=== PATIENT | female | born 1945 | race Caucasian/White ===

== ENCOUNTER 2024-11-18 13:46 | Inpatient (IN) | payer OTHER, SELFPAY ==
[2024-11-17 17:55] VITALS: BP 153/72
--- NOTE | 2024-11-17 18:02 | ED.GENMED ---
History of Present Illness
<Haven Collier PA-C - Last Filed: 11/17/24 22:20>
General
Chief Complaint: Fall
Source: patient
Exam Limitations: none
Time Seen by Provider: 11/17/24 17:59
Nursing documentation reviewed up to this point in time: agreed with
History of Present Illness
History of Present Illness:
79-year-old female with past medical history of dementia, hypertension, hyperlipidemia comes to the emergency department today via EMS for left shoulder pain left arm pain following a fall. Patient reports that she was walking at [employer] when
she tripped over the carpet and fell onto her left side. She is unsure if she hit her head but does note a mild left-sided headache. She was unable to get up on her own after the incident and EMS was called. She denies any hip pain, chest wall
pain, shortness of breath. She denies any abdominal pain. She has not take any antiplatelet or anticoagulant agents. She denies any neck pain. She she denies any syncope with a fall or any dizziness preceding it.
Review of Systems
<Haven Collier PA-C - Last Filed: 11/17/24 22:20>
Review of Systems
All Other Systems: ROS reviewed and negative except as documented in HPI and ROS
Phy Exam
<Haven Collier PA-C - Last Filed: 11/17/24 22:20>
Physical Exam
Physical Exam:
General: Patient is well appearing and in no acute distress; non-toxic
Skin: Warm and dry, no rashes or lesions
Head: Normocephalic, atraumatic, mild tenderness to palpation to left frontal scalp with no palpable hematoma
Eyes: Sclera non-icteric. EOMs intact. PERRLA.
Cardiac: Regular rate and rhythm, no murmurs, no tenderness to palpation of the external chest wall
Peripheral Vascular: No lower extremity swelling or edema
Pulm: Normal respiratory effort
Abdomen: No abdominal tenderness
Musculoskeletal: Significant swelling noted to left upper arm, no obvious bony deformity, significant tenderness to left upper arm with palpation. Patient unable to range left arm due to significant pain.
Neuro: CN II-XII intact, no focal neurologic deficits.
Psychiatric: Appropriate mood and affect.
Course
<Haven Collier PA-C - Last Filed: 11/17/24 22:20>
Orders/Labs/Results
Orders:
Orders
11/17/24 18:04
CMP [Comprehensive Metabolic Panel] Urgent
Complete Blood Count/With Diff Urgent
11/17/24 18:10
CT Head W/o Iv Contrast Urgent
Comment:
Reason For Exam: left sided headache following fall
Morphine Sulfate 2 mg IV NOW STA
CR Humerus - Left Min 2 Views* Urgent
Comment:
Reason For Exam: left shoulder pain left arm pain
CR Shoulder - Left Min 2 View* Urgent
Comment:
Reason For Exam: left shoulder pain left arm pain
11/17/24 18:13
CT Cervical Spine W/o Iv Contr Urgent
Comment:
Reason For Exam: neck pain following fall
11/17/24 20:35
Acetaminophen [Tylenol] 1,000 mg PO NOW STA
Morphine Sulfate 4 mg IV NOW STA
11/17/24 21:27
Admit/Transfer Patient As Directed
Co-Sign Provider:
Level of Care: Observation services
Assign to:: Medical/Surgical
Physician / Group: hospitalist
Diagnosis: left humerus fracture
Reason for Hospitalization: ambulatory dysfunction
11/17/24 21:28
PRN Pain Medication Management As Directed
May give lesser potent ordered pain med per pt: Yes
preference::
Protocol:: Medication orders for pain may be administered in a
manner that supports deferring to patient preference
when the pt is:
- Requesting an ordered lesser potent pain medication.
Least to most potent pain medications are defined
as: acetaminophen < NSAID < tramadol < opioids
(morphine, oxycodone, hydromorphone).
- Requesting a lesser dose of the same medication IF
ORDERED.
- Requesting a less intrusive route of administration
if both routes are prescribed by the provider (PO <
IV).
11/17/24 21:30
Code Status As Directed
Resuscitation Status: Full Code
11/17/24 22:00
Flush (0.9% Sodium Chloride) [Flush (Nss)] See Dose Instructions IV PER PROTOCOL
Abnormal Lab Results
11/17/24
18:04
RBC 3.89 L 10^6/uL
(4.20-5.40)
Hgb 11.5 L g/dL
(12.0-16.0)
Hct 34.1 L %
(37.0-47.0)
RDW 15.1 H %
(11.5-14.5)
Absolute Monos (auto) 0.7 H 10^3/uL
(0.1-0.6)
Lymphocytes % 18.1 L %
(20.5-51.1)
BUN 18 H mg/dl
(7-17)
Glucose 105 H mg/dl
(70-99)
11/17/24 18:04
11/17/24 18:04
Vital Signs
Initial and Last Documented VS:
Initial Vital Signs
Temp Pulse Resp BP Pulse Ox
97.9 F 78 16 153/72 96
11/17/24 17:55 11/17/24 17:55 11/17/24 17:55 11/17/24 17:55 11/17/24 17:55
Last Documented Vital Signs
Temp Pulse Resp BP Pulse Ox
97.9 F 83 17 114/64 98
11/17/24 17:55 11/17/24 21:30 11/17/24 18:15 11/17/24 21:00 11/17/24 21:30
<Cherie Bonner MD - Last Filed: 11/17/24 19:25>
Orders/Labs/Results
Orders:
Orders
11/17/24 18:04
CMP [Comprehensive Metabolic Panel] Urgent
Complete Blood Count/With Diff Urgent
11/17/24 18:10
CT Head W/o Iv Contrast Urgent
Comment:
Reason For Exam: left sided headache following fall
Morphine Sulfate 2 mg IV NOW STA
CR Humerus - Left Min 2 Views* Urgent
Comment:
Reason For Exam: left shoulder pain left arm pain
CR Shoulder - Left Min 2 View* Urgent
Comment:
Reason For Exam: left shoulder pain left arm pain
11/17/24 18:13
CT Cervical Spine W/o Iv Contr Urgent
Comment:
Reason For Exam: neck pain following fall
11/17/24 20:35
Acetaminophen [Tylenol] 1,000 mg PO NOW STA
Morphine Sulfate 4 mg IV NOW STA
11/17/24 21:27
Admit/Transfer Patient As Directed
Co-Sign Provider:
Level of Care: Observation services
Assign to:: Medical/Surgical
Physician / Group: hospitalist
Diagnosis: left humerus fracture
Reason for Hospitalization: ambulatory dysfunction
11/17/24 21:28
PRN Pain Medication Management As Directed
May give lesser potent ordered pain med per pt: Yes
preference::
Protocol:: Medication orders for pain may be administered in a
manner that supports deferring to patient preference
when the pt is:
- Requesting an ordered lesser potent pain medication.
Least to most potent pain medications are defined
as: acetaminophen < NSAID < tramadol < opioids
(morphine, oxycodone, hydromorphone).
- Requesting a lesser dose of the same medication IF
ORDERED.
- Requesting a less intrusive route of administration
if both routes are prescribed by the provider (PO <
IV).
11/17/24 21:30
Code Status As Directed
Resuscitation Status: Full Code
11/17/24 22:00
Flush (0.9% Sodium Chloride) [Flush (Nss)] See Dose Instructions IV PER PROTOCOL
Abnormal Lab Results
11/17/24
18:04
RBC 3.89 L 10^6/uL
(4.20-5.40)
Hgb 11.5 L g/dL
(12.0-16.0)
Hct 34.1 L %
(37.0-47.0)
RDW 15.1 H %
(11.5-14.5)
Absolute Monos (auto) 0.7 H 10^3/uL
(0.1-0.6)
Lymphocytes % 18.1 L %
(20.5-51.1)
BUN 18 H mg/dl
(7-17)
Glucose 105 H mg/dl
(70-99)
11/17/24 18:04
11/17/24 18:04
Vital Signs
Initial and Last Documented VS:
Initial Vital Signs
Temp Pulse Resp BP Pulse Ox
97.9 F 78 16 153/72 96
11/17/24 17:55 11/17/24 17:55 11/17/24 17:55 11/17/24 17:55 11/17/24 17:55
Last Documented Vital Signs
Temp Pulse Resp BP Pulse Ox
97.9 F 83 17 114/64 98
11/17/24 17:55 11/17/24 21:30 11/17/24 18:15 11/17/24 21:00 11/17/24 21:30
<Haven Collier PA-C - Last Filed: 11/17/24 22:20>
MDM/Problems Addressed
Differential Diagnosis Includes:
see below
MDM/Problems Addressed:
NUMBER AND COMPLEXITY OF PROBLEMS ADDRESSED AT THE ENCOUNTER
� Chronic conditions affecting care: Dementia, GERD, anxiety, depression, vertigo
� Acute Exacerbation and/or Progression of Chronic Illness:
� Differential Diagnosis includes: Humeral fracture, clavicular fracture, musculoskeletal sprain/strain, subdural hematoma, epidural hematoma, continue
AMOUNT AND/OR COMPLEXITY OF DATA TO BE REVIEWED AND ANALYZED
� I performed an independent evaluation of and my interpretation is:
CT: No acute intracranial
X-rays: Displaced humerus fracture noted
Laboratory Studies: unremarkable
Other:
� Review of other/old records: No previous ER physician documentation to review
� Clinical information was obtained by an independent historian: Spoke to daughter on phone who helped provide history regarding patient's functional status
� Prescriptions/Medications Considered but not given: none
� Further testing considered but not performed: none
RISK OF COMPLICATIONS AND/OR MORBIDITY OR MORTALITY OF PATIENT MANAGEMENT
� Social determinants of health affecting care: none
� Discussion with other providers: ER attending, Dr. Meyer
� Escalation of care including admission/observation vs risk of discharge considered:
79-year-old female past medical history dementia presents emergency department from [facility] for left upper extremity pain following a trip and fall. She is found to have a displaced humerus fracture. She was treated with
multiple rounds of pain medication. On exam, she has significant swelling surrounding the left upper arm however her sensation is intact and she has good distal pulses. Per orthopedic Recommendations, she was placed in a coadaptation splint.
Patient does use a walker to ambulate 06/06, considering patient lives alone will be unable to ambulate at this time, will admit for further pain control and potential surgical repair. I did update patient's daughter. Patient referred for admission.
<Haven Collier PA-C - Last Filed: 11/17/24 22:20>
*Critical Care Note
Total Time (30-74mins, 75-104mins- exclusive of procedures): Not Applicable
ED Attending Note
<TAQUERIA Corona-Terri - Last Filed: 11/17/24 22:20>
-
Portions of this chart may have been created with voice recognition software.� Occasional wrong word or��sound alike� substitutions may have occurred due to the inherent limitations of voice recognition software.
<Cherie Bonner MD - Last Filed: 11/17/24 19:25>
ED Attending Note
Patient seen and examined by attending physician: Yes
I performed the substantive portion of visit, reviewed & personally made and approve the management plan that is documented in note by myself or SHELLEY.: Yes
ED Attending Note:
Patient appears well nontoxic. She is fully conversational and awake. She denies any severe headache, nausea and vomiting. She has no C-spine tenderness. Patient has strong pulses and good movement of her left hand. We will likely splint her in
a posterior long splint and speak to orthopedics for follow-up.
Discharge Plan
Departure
Patient Disposition: Admit
Date of Disposition: 11/17/24
Time of Disposition: 21:03
Admit to: Med/Surg
Presentation/result/management discussed w/ accepting MD/DO: Hospitalist
Condition: Fair
Discharge Problem:
Displaced fracture of shaft of humerus, Ambulatory dysfunction
Interventions
Interventions:
*Risk Screen - Suicide Last Done: 11/17/24 18:15
*General Assessment Last Done: 11/17/24 18:15
*Neglect/Abuse Screening Last Done: 11/17/24 18:15
*ED COVID-19 Vaccine History Last Done: 11/17/24 18:15
ED-Musculoskeletal Assessment Last Done: 11/17/24 18:22
ED- Neurological Assessment Last Done: 11/17/24 18:22
ED-Skin Assessment Last Done: 11/17/24 18:22
[2024-11-17 18:08] VITALS: BMI 33.7
[2024-11-17 18:11] LABS: % Basophils 0.4 % (0-2); % Eosinophils 0.7 % (0-6); % Immature Granulocytes 0.2 % (0-0.5); % Lymphocytes 18.1 % (20.5-51.1); % Monocytes 8.3 % (1.7-9.3); % Neutrophils 72.3 % (42.2-75.2); Absolute Eosinophils 0.1 10^3/uL (0-0.7); Absolute Lymphocytes 1.5 10^3/uL (1.2-3.4); Absolute Monocytes 0.7 10^3/uL (0.1-0.6); Absolute Neutrophils 5.8 10^3/uL (1.4-6.5); Hematocrit 34.1 % (37.0-47.0); Hemoglobin 11.5 g/dL (12.0-16.0); Mean Corp Hgb Conc. 33.7 g/dL (33.0-37.0); Mean Corpuscular Hgb 29.6 pg (27.0-31.0); Mean Corpuscular Volume 87.7 fL (81.0-99.0); Mean Platelet Volume 9.2 fL (7.4-10.4); Nucleated Red Blood Cells % 0 %; Platelet Count 184 10^3/uL (130-400); Red Blood Cell Count 3.89 10^6/uL (4.20-5.40); Red Cell Dist. Width 15.1 % (11.5-14.5); White Blood Cell Count 8.1 10^3/uL (4.8-10.8)
[2024-11-17] MEDS: MORPHINE SULFATE 2 MG IV (18:19)
[2024-11-17 18:26] LABS: ALT (SGPT) 15 U/L (0-35); AST (SGOT) 22 U/L (14-36); Alkaline Phosphatase 110 U/L (38-126); Blood Urea Nitrogen 18 mg/dl (7-17); Calcium 9.2 mg/dl (8.4-10.2); Carbon Dioxide 30 mmol/L (22-30); Chloride 101 mmol/L (98-107); Estimated Creatinine Clearance 76 ml/min; Glucose 105 mg/dl (70-99); Potassium 3.5 mmol/L (3.5-5.1); Sodium 137 mmol/L (135-145); Total Bilirubin 0.5 mg/dl (0.2-1.3); Total Protein 6.7 g/dl (6.3-8.2); eGFR > 60.00
[2024-11-17 19:15] VITALS: BP 142/76
[2024-11-17 20:00] VITALS: BP 111/85
[2024-11-17] MEDS: TYLENOL 1000 MG PO (20:57)
[2024-11-17 21:00] VITALS: BP 114/64
--- NOTE | 2024-11-17 21:17 | HPS.HSE ---
Family Physician
-
Family Physician: Gaurav Bryant
Chief Complaint
-
Left-sided shoulder fracture status post fall
History of Present Illness
This is a 79-year-old with a complex past medical history including hypertension, hyperlipidemia, asthma, obesity, ambulatory dysfunction and mild dementia who presents to the emergency department following a mechanical fall at her assisted living
facility.
Patient presents from [facility] following the fall. She recalls tripping on a rug and falling. She denies any loss of consciousness. She did not hit her head. She denies having any prodromal symptoms prior to the fall. He appears to be
slowly mechanical fall. Patient had not had a fall in 6 months. She was helped up but was complaining of severe pain and was brought to the emergency department for evaluation.
In the emergency department, found to have an acute displaced fracture of the left humeral diaphysis. Ortho consulted in the ED and recommended placement of a coaptation splint which was placed. Patient already ambulates with a walker and
unfortunately cannot be discharged safely to home.
Vital signs in the ED showed a blood pressure of 4 110/85 with a pulse of 91. She is satting 99% on room air. She was afebrile. CBC was unremarkable. Likewise chemistries BUN/creatinine were also stable.
The imaging on shoulder x-ray shows acute displaced fracture of the left mid humeral diaphysis. CT of the head was unremarkable. CT of the C-spine shows chronic degenerative changes with moderate to severe foraminal narrowing against the 422 C7.
She has no significant canal stenosis. Her x-ray shows no acute trauma.
Medical History
Past Medical History
Past Medical History: Reports Asthma, Dementia (Mild), GERD, HTN and Hypercholesterolemia
Past Surgical History: Reports Bowel Resection (Hemicolectomy), (X 2) and Orthopedic (Cervical spine fusion, lumbar spine fusion, bilateral total hip arthroplasty,)
Social History
Tobacco: Non-smoker
Alcohol: Occasional
Drug: None
Personal:
Living: Assisted Living
Employment: Retired
Family History
Family History: Not pertinent
Allergies / Home Medications
Allergies reflects when Allergies were last updated in [facility].
Home Medications with original date entered in [facility]
Allergy/Medication List:
Allergies
Allergy/AdvReac Type Severity Reaction Status Date / Time
bupropion [From Wellbutrin] Allergy vomting, Verified 11/17/24 17:52
dizziness
donepezil [From Aricept] Allergy Nausea Verified 11/17/24 17:52
oxycodone [From Percocet] Allergy dizziness Verified 11/17/24 17:52
propoxyphene Allergy dizziness Verified 11/17/24 17:52
[From Darvocet-N]
Home Medications
acetaminophen 500 mg tablet 1,000 mg PO BID 11/17/24
atorvastatin 20 mg tablet 20 mg PO DAILY 11/17/24
bisacodyl 5 mg tablet (Woman's Laxative (bisacodyl)) 5 mg PO DAILY 11/17/24
gabapentin 600 mg tablet 600 mg PO DAILY 11/17/24
gabapentin 800 mg tablet 800 mg PO HS 11/17/24
lamotrigine 25 mg tablet 50 mg PO HS 11/17/24
lisinopril 2.5 mg tablet 2.5 mg PO DAILY 11/17/24
memantine 10 mg tablet 10 mg PO BID 11/17/24
montelukast 10 mg tablet 10 mg PO DAILY 11/17/24
nortriptyline 10 mg capsule 20 mg PO HS 11/17/24
omeprazole 20 mg capsule,delayed release 20 mg PO DAILY 11/17/24
therapeutic multivitamin 1 tab PO DAILY 11/17/24
tramadol 50 mg tablet 100 mg PO BID 11/17/24
venlafaxine 75 mg capsule,extended release 24 hr 225 mg PO DAILY 11/17/24
Review of Systems
-
History Source: Patient
Constitutional: Reports No Symptoms
EENT: Reports No Symptoms
Respiratory: Reports No Symptoms
Cardiac: Reports No Symptoms
Abdomen/GI: Reports No Symptoms
: Reports No Symptoms
Musculoskeletal: Reports Joint Pain
Skin: Reports No Symptoms
Neurological: Reports No Symptoms
Endocrine: Reports No Symptoms
Hematologic/Lymphatic: Reports No Symptoms
Psych: Reports No Symptoms
Physical Exam
Vital Signs
Vital Signs
Temp Pulse Resp BP Pulse Ox
97.9 F 91 17 111/85 99
11/17/24 17:55 11/17/24 20:15 11/17/24 18:15 11/17/24 20:00 11/17/24 20:00
Physical Exam
General: Pain
HEENT: NormoCephalic, Anicteric, Moist mucous membranes and Atraumatic
Respiratory: Clear
Cardiac: S1/S2 and Regular Rhythm
Breast: Deferred by me
GI: Soft, Non Tender, Non Distended and Normal Bowel Sounds
Rectal: Deferred by Provider
Genito-urinary: Deferred by me
Musculoskeletal: No Clubbing, No Cyanosis, No Edema and Other (Left upper extremity free in a splint. Pulses intact.)
Skin: Warm
Neuro: AO x 3 and Nonfocal/grossly intact
Psych: Calm
Laboratory Results
-
11/17/24 18:04
11/17/24 18:04
Laboratory Results
Total Bilirubin 0.5 mg/dl (0.2-1.3) 11/17/24 18:04
AST 22 U/L (14-36) 11/17/24 18:04
ALT 15 U/L (0-35) 11/17/24 18:04
Alkaline Phosphatase 110 U/L (38-126) 11/17/24 18:04
Data Reviewed
-
Diagnostic Radiology: Report Reviewed by me
CT Scan: Report Reviewed by me
Lab Data: Labs Reviewed by me
Old Records: Reviewed
Impression/Plan
-
IMPRESSION:
79-year-old female has ambulatory dysfunction and ambulates with a walker and lives at assisted living at [facility] presents to the emergency department following a mechanical fall and suffered an acute displaced fracture of the left mid humeral
diaphysis. She has been placed in a splint as recommended by orthopedics. However she is still in pain and has significant worsening of ambulatory capacity. No other traumatic or medical findings in this acute visit.
PLAN:
1. Fracture
- admit to med/surg
- pain control w/ tylenol, gabapentin and low dose opioids prn
- continue coaptation splint per ortho
- PT/OT
- Case management
2. HTN -Stable
- continue lisinopirl 2.5
3. Asthma - Mild intermittent, no current exacerbation
- prn nebs
- continue montelukast
4. Dementia - Mild. Patient a&o x 3 here and appropriate
- continue memantine
- continue venlafaxine
DVT PPx - lovenox sq
Code status - full code
[2024-11-17 22:00] VITALS: BP 128/66
[2024-11-17] MEDS: MORPHINE SULFATE 4 MG IV (22:14)
[2024-11-17 23:22] VITALS: BP 103/63
[2024-11-18] VITALS (8 sets, daily range): BP systolic 91–113; BP diastolic 52–69; BMI 33.0
[2024-11-18] MEDS: TYLENOL PO ×2 (00:01→23:22)
[2024-11-18] MEDS: COLACE 100 MG PO ×3 (00:04→19:58)
[2024-11-18] MEDS: SENOKOT 17.2 MG PO ×3 (00:05→19:59)
[2024-11-18] MEDS: PAMELOR 20 MG PO ×2 (00:07→21:51)
[2024-11-18] MEDS: NEURONTIN 800 MG PO ×2 (00:08→21:51)
[2024-11-18] MEDS: LAMICTAL 50 MG PO ×2 (00:09→21:52)
[2024-11-18] MEDS: TYLENOL 650 MG PO ×5 (05:09→19:59)
[2024-11-18] MEDS: PROTONIX 40 MG PO (08:32)
[2024-11-18] MEDS: NEURONTIN 600 MG PO (08:32)
[2024-11-18] MEDS: NAMENDA 10 MG PO ×2 (08:32→19:58)
[2024-11-18] MEDS: LIPITOR 20 MG PO (08:32)
[2024-11-18] MEDS: EFFEXOR XR 225 MG PO (08:32)
[2024-11-18] MEDS: ZESTRIL 2.5 MG PO (08:33)
[2024-11-18] MEDS: SINGULAIR 10 MG PO (08:33)
[2024-11-18] MEDS: MORPHINE SULFATE 4 MG IV ×3 (08:52→23:14)
--- NOTE | 2024-11-18 09:24 | CON.ORTHO ---
Consultation
-
Date/Time Consultation Requested: 11/17/24, time unknown
Date/Time Consultation Performed: 11/18/23 @ 0915
Requesting Provider: unknown
Performing Provider: Amy Omalley PA-C, Misbah Meyer MD
Reason for Consultation: left humerus fracture
Consultation - Orthopedics
History
HPI: 79yo female presents to [facility] for left arm pain. Yesterday, she was walking in the dining [place] when she tripped and fell, landing on her left side. She was in severe pain and was brought to the ER via EMS for evaluation. She denies
hitting her head. Xrays were performed in the ER which reveal left humerus fractures. She denies any numbness/tingling in the arm or hand. She does endorse pain. She is not on any blood thinners. She is right hand dominant. Orthopedics was consulted
for further recommendations
PAST MEDICAL HISTORY: HTN, HLD, asthma, obesity, ambulatory dysfunction, GERD, mild dementia
PAST SURGICAL HISTORY: bowel resection, cervical spine fusion, lumbar spine fusion, bilateral ANGELA, x2
SOCIAL HISTORY: lives alone at assisted living at [facility]. denies tobacco, alcohol. ambulates with a walker
FAMILY HISTORY: non contributory
REVIEW OF SYSTEMS: 12 point review of systems obtained and negative except those mentioned in the HPI
Allergies / Home Medications
Allergy/AdvReac Type Severity Reaction Status Date / Time
bupropion [From Wellbutrin] Allergy vomting, Verified 11/17/24 17:52
dizziness
donepezil [From Aricept] Allergy Nausea Verified 11/17/24 17:52
oxycodone [From Percocet] Allergy dizziness Verified 11/17/24 17:52
propoxyphene Allergy dizziness Verified 11/17/24 17:52
[From Darvocet-N]
�Medication �Instructions �Recorded
acetaminophen 500 mg tablet 1,000 mg PO BID 11/17/24
atorvastatin 20 mg tablet 20 mg PO DAILY 11/17/24
bisacodyl 5 mg tablet (Woman's 5 mg PO DAILY 11/17/24
Laxative (bisacodyl))
gabapentin 600 mg tablet 600 mg PO DAILY 11/17/24
gabapentin 800 mg tablet 800 mg PO HS 11/17/24
lamotrigine 25 mg tablet 50 mg PO HS 11/17/24
lisinopril 2.5 mg tablet 2.5 mg PO DAILY 11/17/24
memantine 10 mg tablet 10 mg PO BID 11/17/24
montelukast 10 mg tablet 10 mg PO DAILY 11/17/24
nortriptyline 10 mg capsule 20 mg PO HS 11/17/24
omeprazole 20 mg capsule,delayed 20 mg PO DAILY 11/17/24
release
therapeutic multivitamin 1 tab PO DAILY 11/17/24
tramadol 50 mg tablet 100 mg PO BID 11/17/24
venlafaxine 75 mg capsule,extended 225 mg PO DAILY 11/17/24
release 24 hr
Vital Signs / Lab Results
Temp Pulse Resp BP Pulse Ox
98.4 F 80 16 101/61 97
11/18/24 08:30 11/18/24 08:45 11/17/24 23:22 11/18/24 08:33 11/18/24 08:30
11/17/24 18:04
11/17/24 18:04
RADIOGRAPHIC FINDINGS:
Xrays left humerus and shoulder show ACUTE DISPLACED FRACTURE of the LEFT MID HUMERAL DIAPHYSIS with a fracture line extending superiorly through the intramedullary space of the proximal humerus into the surgical neck. Diffuse bone demineralization.
Chronic healed fracture of the distal left clavicle. Moderate osteoarthritis of the left acromioclavicular joint.
PHYSICAL EXAM:
General: no acute distress, AAOx3
HEENT: NCAT, sclera anicteric, normal hearing
Heart: no JVD
Lungs: Normal work of breathing currently on nasal cannula
MSK: Directed exam of LUE shows splint and sling in place. Skin appears to be intact. Full ROM of wrist and hand. Sensation intact to light touch. Cap refill <2secs
Assessment / Plan
ASSESSMENT: 79yo female with left displaced humerus fracture
PLAN: Unfortunately, Ms. Armas has sustained a left displaced mid humeral shaft fracture that is extending to the proximal humerus. We discussed treatment options and I do recommend surgical fixation. The risks, benefits, and potential complications
of surgery were reviewed. She would like to proceed. Will plan for ORIF left humerus under the direction of Dr. Pedro/Dr. Meyer on 11/19/24 pending medical clearance. Surgical and blood consent obtained. Splint and sling to remain in
place. Non weight bearing to the left arm. She will need to be NPO after midnight tonight. Ancef and irrigation telecommunications network engineer to OR. Type and screen ordered. Orthopedics will continue to follow along.
--- NOTE | 2024-11-18 10:31 | EDRN ---
Patient taken to room 2105 on stretcher by broadcast technician.
--- NOTE | 2024-11-18 12:40 | PTCARENOTE ---
Pt admitted from ED to 2104 after fall resulting left humerus fx at [facility]. VSS, left arm in splint and sling, VSS, neuro vascular check good. Plan of care explained, call cole within reach, assessment as documented.
--- NOTE | 2024-11-18 13:09 | PTCARENOTE ---
Pt's daughter here, brought pt's living will.
[2024-11-18] MEDS: ULTRAM 100 MG PO ×2 (13:18→19:59)
--- NOTE | 2024-11-18 13:45 | W.PN.HOSP.TC ---
Addendum entered and electronically signed by Jasvir Aranda MD 11/18/24 14:40:
EKG with NSR. Ventricle Rate 74. No ST-T wave changes noted. No previous EKG to compare.
Original Note:
Today's Communication/Plan
-
Check EKG preop
Pain control
Bedrest and nonweightbearing on left upper extremity
N.p.o. past midnight OR tomorrow
Assessment / Plan
Assessment / Plan
IMPRESSION:
79-year-old female has ambulatory dysfunction and ambulates with a walker and lives at assisted living at [facility] presents to the emergency department following a mechanical fall and suffered an acute displaced fracture of the left mid humeral
diaphysis. She has been placed in a splint as recommended by orthopedics. However she is still in pain and has significant worsening of ambulatory capacity. No other traumatic or medical findings in this acute visit.
PLAN:
Mechanical fall leading to ACUTE DISPLACED FRACTURE of the LEFT MID HUMERAL DIAPHYSIS
- pain control w/ tylenol, gabapentin and low dose opioids prn
- continue coaptation splint per ortho
- PT/OT POST OP.
- Case management
-Patient is a 79-year-old female with no significant cardiac history. Denies any renal disease. Denies diabetes history. Denies any chest pain at rest or with exertion with activity. No prior cardiac events. Patient at baseline not on oxygen.
Blood pressure and heart rate well-controlled. Check EKG preop. Pt denies chest pain at rest or exertion or sob or pnd or orthopnea. Pt with RCRI 0.9% class I risk of cardiovascular risk factor for Left ORIF.
- continue lisinopril 2.5
Asthma - Mild intermittent, no current exacerbation
- prn nebs
- continue montelukast
Dementia - Mild. Patient a&o x 3 here and appropriate
- continue memantine
- continue venlafaxine
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
Moderate osteoarthritis of the left acromioclavicular joint.
-Pain control. PT/OT post op
Chronic opioid dependent on daily basis
-Continue with tramadol 100 mg twice daily
Hyperlipidemia�continue statin
History of bilateral total hip replacement
DVT PPx -scds pre-op.
Code status - full code
Called daughter Yasmine Mclain, cell [phone] to update but No response. Left VM.
Anticipated Discharge: > 48 hours
Subjective/Interval History
-
Date of Service: November 18, 2024
states of Left arm pain
eating breakfast
Objective Data
-
Vital Signs:
Vital Signs
Temp Pulse Resp BP Pulse Ox
98.1 F 77 18 108/60 95
11/18/24 10:14 11/18/24 10:14 11/18/24 10:14 11/18/24 10:14 11/18/24 12:38
Data Reviewed
-
Total Time Spent with Patient (in minutes): 55
--- NOTE | 2024-11-18 16:12 | PTCARENOTE ---
Pt not turning as frequently due to pain; foam placed on sacrum for protection, heels elevated, pt placed on turning schedule.
[2024-11-18] MEDS: FLOMAX 0.4 MG PO (23:13)
[2024-11-19] VITALS (9 sets, daily range): BP systolic 93–118; BP diastolic 59–88; BMI 35.3
[2024-11-19] MEDS: TYLENOL PO ×3 (03:58→21:00)
[2024-11-19] MEDS: MORPHINE SULFATE 4 MG IV (05:53)
[2024-11-19 08:09] LABS: % Basophils 0.3 % (0-2); % Eosinophils 1.8 % (0-6); % Immature Granulocytes 0.3 % (0-0.5); % Lymphocytes 19.5 % (20.5-51.1); % Monocytes 12.1 % (1.7-9.3); Absolute Eosinophils 0.1 10^3/uL (0-0.7); Absolute Lymphocytes 1.2 10^3/uL (1.2-3.4); Absolute Monocytes 0.8 10^3/uL (0.1-0.6); Absolute Neutrophils 4.1 10^3/uL (1.4-6.5); Hematocrit 29.6 % (37.0-47.0); Hemoglobin 9.7 g/dL (12.0-16.0); Mean Corp Hgb Conc. 32.8 g/dL (33.0-37.0); Mean Corpuscular Volume 91.6 fL (81.0-99.0); Mean Platelet Volume 10.1 fL (7.4-10.4); Nucleated Red Blood Cells % 0 %; Platelet Count 158 10^3/uL (130-400); Red Blood Cell Count 3.23 10^6/uL (4.20-5.40); Red Cell Dist. Width 15.3 % (11.5-14.5); White Blood Cell Count 6.3 10^3/uL (4.8-10.8)
[2024-11-19 08:15] LABS: INR 1.01; PT 13.7 Sec (11.4-14.6)
[2024-11-19 08:16] LABS: APTT 33.2 Sec (23.4-35.0)
[2024-11-19] MEDS: SINGULAIR 10 MG PO (08:22)
[2024-11-19] MEDS: EFFEXOR XR 225 MG PO (08:22)
[2024-11-19] MEDS: TYLENOL 650 MG PO ×2 (08:23→12:10)
[2024-11-19] MEDS: LIPITOR 20 MG PO (08:23)
[2024-11-19] MEDS: NEURONTIN 600 MG PO (08:23)
[2024-11-19] MEDS: NAMENDA 10 MG PO ×2 (08:23→21:00)
[2024-11-19] MEDS: COLACE 100 MG PO ×2 (08:23→22:00)
[2024-11-19] MEDS: PROTONIX 40 MG PO (08:23)
[2024-11-19] MEDS: ULTRAM 100 MG PO (08:23)
[2024-11-19] MEDS: ZESTRIL 2.5 MG PO (08:23)
[2024-11-19] MEDS: SENOKOT 17.2 MG PO ×2 (08:23→21:00)
[2024-11-19 08:41] LABS: Blood Urea Nitrogen 35 mg/dl (7-17); Calcium 9.1 mg/dl (8.4-10.2); Carbon Dioxide 31 mmol/L (22-30); Chloride 99 mmol/L (98-107); Estimated Creatinine Clearance 38 ml/min; Glucose 105 mg/dl (70-99); Potassium 4.1 mmol/L (3.5-5.1); Sodium 137 mmol/L (135-145); eGFR 46.05
--- NOTE | 2024-11-19 08:57 | W.PN.UPDATE ---
Update Note
Progress Note Update
Patient resting comfortably in bed this morning. Endorses a moderate amount of pain to the left arm. Plan for left humerus ORIF later today via Dr. Pedro. To remain NPO. Consents on chart. Sling/splint to LUE.
--- NOTE | 2024-11-19 11:46 | CM ---
Patient chart reviewed.
OR today
PMH: htn, hdl, obesity, asthma, mild dementia
Spoke with daughter Yasmine waldron.
Lives alone at [facility]
daughter states multiple falls in past, trying to get her in [place]
daughter states she has aides that assist 7 days a week 10am-12pm as well as assist with medications 2xday
Spoke with [facility] at [facility]-referral placed in [facility] for [facility]
PCP: Susan Rivas
Pharmacy: [facility], [address] [facility] Cris Burns [phone]
PLAN: Await PT/OT evals post op, anticipate SNF
--- NOTE | 2024-11-19 11:46 | PTCARENOTE ---
Daughter Yasmine called this am for update, contact information listed in the chart, daughter updated regarding plan of care. Later this am, daughter Gema called requesting an update. Contact information not currently listed in the chart. RN asked pt
' Is it ok to update your daughter Gema regarding your care?' Pt unable to provide clear answer ' stated I have yasmine as POA because she is a nurse, I want Gema to know im ok but she gets worried'. RN suggested to pt to call nell Ribeiro and
personally speak with her, Pt agreed. RN in to reassess pt, asked pt ' were you able to get a hold of your daughter' Pt stated ' No i don't want to talk with her right now'. Daughter called pt while RN still in room and pt provided update to
nell Ribeiro. Care remains ongoing.
--- NOTE | 2024-11-19 18:59 | W.PN.HOSP.TC ---
Today's Communication/Plan
-
CM for potential dc to [facility] SNF post op
Assessment / Plan
Assessment / Plan
IMPRESSION:
79-year-old female has ambulatory dysfunction and ambulates with a walker and lives at assisted living at [facility] presents to the emergency department following a mechanical fall and suffered an acute displaced fracture of the left mid humeral
diaphysis. She has been placed in a splint as recommended by orthopedics. However she is still in pain and has significant worsening of ambulatory capacity. No other traumatic or medical findings in this acute visit.
PLAN:
Mechanical fall leading to ACUTE DISPLACED FRACTURE of the LEFT MID HUMERAL DIAPHYSIS
- pain control w/ tylenol, gabapentin and low dose opioids prn
- continue coaptation splint per ortho
- PT/OT POST OP.
- Case management
-Patient is a 79-year-old female with no significant cardiac history. Denies any renal disease. Denies diabetes history. Denies any chest pain at rest or with exertion with activity. No prior cardiac events. Patient at baseline not on oxygen.
Blood pressure and heart rate well-controlled.
EKG preop nl
Pt denies chest pain at rest or exertion or sob or pnd or orthopnea. Pt with RCRI 0.9% class I risk of cardiovascular risk factor for Left ORIF.
- continue lisinopril 2.5
Asthma - Mild intermittent, no current exacerbation
- prn nebs
- continue montelukast
Dementia - Mild. Patient a&o x 3 here and appropriate
- continue memantine
- continue venlafaxine
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
Moderate osteoarthritis of the left acromioclavicular joint.
-Pain control. PT/OT post op
Chronic opioid dependent on daily basis
-Continue with tramadol 100 mg twice daily
Hyperlipidemia�continue statin
History of bilateral total hip replacement
DVT PPx -scds pre-op.
Code status - full code
Dr. Aranda Called daughter Yasmine Mclain, cell [phone] to update but No response. Left VM.
Anticipated Discharge: 24 - 48 hours
Subjective/Interval History
-
Date of Service: November 19, 2024
Pt seen earlier, this morning and was awaiting planned surgical intervention
Objective Data
-
Labs:
Laboratory Results
11/19/24
07:07
WBC 6.3
Hgb 9.7 L
Hct 29.6 L
Plt Count 158
PT 13.7
INR 1.01
APTT 33.2
Sodium 137
Potassium 4.1
Chloride 99
Carbon Dioxide 31 H
BUN 35 H
Creatinine 1.2 H
Glucose 105 H
Calcium 9.1
Vital Signs:
Vital Signs
Temp Pulse Resp BP Pulse Ox
98.7 F 95 17 111/88 96
11/19/24 15:00 11/19/24 18:45 11/19/24 18:45 11/19/24 18:45 11/19/24 18:45
I&O
11/18/24 11/19/24 11/20/24
06:59 06:59 06:59
Intake Total 960 / 960
Output Total 410 / 410
Balance 550 / 550
Review of Systems
-
History Source: Patient and Coordinated Provider
Constitutional: Denies Fever
Respiratory: Reports No Symptoms
Cardiac: Reports No Symptoms; Denies Chest Pain
Abdomen/GI: Reports No Symptoms
Musculoskeletal: Reports Joint Pain
Physical Exam
-
General: Well Developed, Well Nourished and No Apparent Distress
HEENT: Normocephalic, Atraumatic and Moist Mucous Membranes
Respiratory: Clear to Auscultation; Negative Wheezes, Rales or Rhonchi
Cardiac: Regular Rhythm and S1/S2
GI: Nontender and Nondistended
Musculoskeletal: No Clubbing, No Cyanosis and No Edema
Neuro: Awake, Alert and Oriented
[2024-11-19] MEDS: ULTRAM PO (20:25)
[2024-11-19] MEDS: NEURONTIN 800 MG PO (22:25)
[2024-11-19] MEDS: PAMELOR 20 MG PO (22:25)
[2024-11-19] MEDS: LAMICTAL 50 MG PO (22:25)
[2024-11-20] VITALS (7 sets, daily range): BP systolic 103–137; BP diastolic 48–102; PULSE 88; O2SAT 91
[2024-11-20] MEDS: TYLENOL PO (00:54)
[2024-11-20] MEDS: ANCEF 5 IV ×2 (00:56→09:05)
--- NOTE | 2024-11-20 01:50 | TRANSFER ---
Received report from [employer] CLOSING COORDINATOR Macy - received pt in bed at 1935 s/p ORIF left prox humerus. LUE w primaseal - scant drainage noted, arm in sling. +CMS to left hand, no c/o pain. Mendoza catheter draining yellow to erlinda urine. Pt sleeping off and on.
Daughter - Yasmine made quinteros of pt's procedure and post op recovery status. Yasmine stated she would like a call from surgical team at some point tomorrow since she did not receive a call pos op from them. Bed in lowest position, call cole within reach.
[2024-11-20] MEDS: TYLENOL 650 MG PO ×5 (03:13→19:57)
--- NOTE | 2024-11-20 05:44 | W.PN.ORTHO ---
Today's Communication / Plan
-
79-year-old female POD #1 Left Humerus ORIF performed on 11/20/[address] Pedro.
- NWB LUE. Sling to LUE.
- Encourage digital ROM.
- Ice therapy / elevation for edema control.
- ASA 81mg BID x 4 weeks for DVT prophylaxis unless otherwise recommended by primary team.
- Hgb this AM pending. Continue to monitor.
- PT/OT.
- Orthopedic surgery will continue to follow.
Assessment
.
Distal Motor Intact: Yes
Dressing:
Aquacel dressing with scant contained bloody drainage.
Sling to LUE.
Digital ROM intact.
Assessment:
POD #1 Left H[address] ORIF with Dr. Pedro
Plan
.
Surgery / Date: 11/19/[address] Pedro
DVT Prophylaxis: Other (Per Primary Team )
Activity:
Out of bed.
PT/OT.
NWB LUE.
Discharge Information:
Appreciate CM.
Subjective
.
.:
Patient resting comfortably. Reports that her left shoulder/humerus pain controlled at this time. Denies any paresthesias. Denies any new complaints or concerns.
Vital Signs and Labs
.
Vital Signs and Labs:
Temp Pulse Resp BP Pulse Ox
97.4 F 91 16 118/59 91
11/20/24 03:05 11/20/24 03:05 11/20/24 03:05 11/20/24 03:05 11/20/24 03:05
PT 13.7 Sec (11.4-14.6) 11/19/24 07:07
INR 1.01 11/19/24 07:07
[2024-11-20 06:36] LABS: Hematocrit 24.9 % (37.0-47.0); Hemoglobin 8.2 g/dL (12.0-16.0)
[2024-11-20 06:41] LABS: INR 1.07; PT 14.2 Sec (11.4-14.6)
[2024-11-20 06:42] LABS: APTT 33.6 Sec (23.4-35.0)
[2024-11-20 07:02] LABS: Blood Urea Nitrogen 35 mg/dl (7-17); Calcium 8.7 mg/dl (8.4-10.2); Carbon Dioxide 28 mmol/L (22-30); Chloride 100 mmol/L (98-107); Estimated Creatinine Clearance 52 ml/min; Glucose 132 mg/dl (70-99); Potassium 4.3 mmol/L (3.5-5.1); Sodium 137 mmol/L (135-145); eGFR > 60.00
[2024-11-20] MEDS: COLACE 100 MG PO ×2 (09:03→19:57)
[2024-11-20] MEDS: EFFEXOR XR 225 MG PO (09:03)
[2024-11-20] MEDS: SENOKOT 17.2 MG PO ×2 (09:04→19:57)
[2024-11-20] MEDS: PROTONIX 40 MG PO (09:04)
[2024-11-20] MEDS: SINGULAIR 10 MG PO (09:04)
[2024-11-20] MEDS: ULTRAM 100 MG PO ×2 (09:04→19:58)
[2024-11-20] MEDS: NEURONTIN 600 MG PO (09:04)
[2024-11-20] MEDS: NAMENDA 10 MG PO ×2 (09:04→19:57)
[2024-11-20] MEDS: LIPITOR 20 MG PO (09:07)
[2024-11-20] MEDS: ZESTRIL PO (09:14)
--- NOTE | 2024-11-20 11:26 | CM ---
Chart reviewed
Referral sent [facility] for the [facility]
Spoke with Trinity - may have bed
PT/OT eval pending
Plan - anticipate SNF when medically ready
--- NOTE | 2024-11-20 13:52 | PN.CDI ---
CDI
- -
CDI:
Physician Documentation Request
Admit Date: 11/18/24 13:46
Dear Doctor Idalmis,
Please review the following and provide your response in the progress notes.
Clinical Indicators:
Pt admitted for mechanical fall leading to displaced fracture of the left mid humeral diaphysis.
Laboratory Tests
11/17/24 11/19/24
18:04 07:07
Creatinine 0.6 1.2 H
Clarify which of the following accurately represents the patient's renal status:
Acute kidney injury (non-traumatic) - see criteria
Insignificant abnormal lab findings
Other
Criteria for LAMAR*
1 Increase in serum creatinine by > or = to 0.3 mg/dL (> or = to 26.5 micromol/L) within 48 hours, OR
2 Increase in serum creatinine to > or = to 1.5 times baseline, which is known or presumed to have occurred within 7 days, OR
3 Urine volume < 0.5 nL/kg/hour for six hours
Use of terms such as suspected, likely, concern for, or probable (associated with a specific diagnosis that is being evaluated, monitored, or treated as if it exists) are acceptable and can be coded in the inpatient setting, when documented at the
time of discharge.
Thank you,
Liliana Garcia RN, BSN
CDI Specialist
Available via [place] Text
Please use your independent medical judgment in providing your response.
*Source: Kidney Disease: Improving Global Outcomes (KDIGO) 2012
--- NOTE | 2024-11-20 15:39 | WOUNDNOTE ---
LEFT COCCYX DTI
--- NOTE | 2024-11-20 16:12 | WOUNDNOTE ---
WOC RN note: Patient admitted with s/p fall, left humerus fracture
See H&P for complete history.
PMH: Dementia, spinal stenosis, HTN, ambulatory dysfunction, osteoarthritis, anxiety/depression, obesity
Wound Location and type/assessment: Patient with left humerus fracture ORIF on . Patient reports fall at home on 11/18 but cannot say how long she was down before help arrived. A DTI is noted on left coccyx surrounded by non-blanchable red
skin. No open areas noted on buttocks/coccyx. Heels are intact.
Appetite: fair
Pressure redistribution devices in place: Static air overlay to be added to bed. Air cushion added to chair. Patient is on a turning schedule. She stands and transfers with assistance.
Plan: Dr. Raygoza made aware of DTI and WOC RN consult placed. Silicone foam is appropriate over DTI and was maintained after assessment. Patient placed on right semi-side lying position with heels off-loaded on pillows. RN Flakita given update. Please
call WOC RN if wounds worsens/changes. Will confirm orders with hospitalist and update nurse.
Updated care plan and will follow as needed.
Note to case management of equipment requested for discharge:
Recommend follow up at wound care center upon discharge.
--- NOTE | 2024-11-20 18:10 | W.PN.HOSP.TC ---
Today's Communication/Plan
-
recheck Hgb in AM
Assessment / Plan
Assessment / Plan
IMPRESSION:
79-year-old female has ambulatory dysfunction and ambulates with a walker and lives at assisted living at [facility] presents to the emergency department following a mechanical fall and suffered an acute displaced fracture of the left mid humeral
diaphysis. She has been placed in a splint as recommended by orthopedics. However she is still in pain and has significant worsening of ambulatory capacity. No other traumatic or medical findings in this acute visit.
PLAN:
Mechanical fall leading to ACUTE DISPLACED FRACTURE of the LEFT MID HUMERAL DIAPHYSIS
- pain control w/ tylenol, gabapentin and low dose opioids prn
- continue coaptation splint per ortho
- PT/OT POST OP.
- Case management
-Patient is a 79-year-old female with no significant cardiac history. Denies any renal disease. Denies diabetes history. Denies any chest pain at rest or with exertion with activity. No prior cardiac events. Patient at baseline not on oxygen.
Blood pressure and heart rate well-controlled.
EKG preop nl
Pt denies chest pain at rest or exertion or sob or pnd or orthopnea. Pt with RCRI 0.9% class I risk of cardiovascular risk factor for Left ORIF.
- continue lisinopril 2.5
Acute kidney injury (non-traumatic)
better
Asthma - Mild intermittent, no current exacerbation
- prn nebs
- continue montelukast
Post op anemia/blood loss anemia
Hgb 11.5-->9.7-->8.2
recheck in AM, may require blood transfusion
Dementia - Mild. Patient a&o x 3 here and appropriate
- continue memantine
- continue venlafaxine
as per nursing no hallucinations noted past 24 hrs, though did appear more confused overall (?related to anesthesia)
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
Moderate osteoarthritis of the left acromioclavicular joint.
-Pain control. PT/OT post op
Chronic opioid dependent on daily basis
-Continue with tramadol 100 mg twice daily
Hyperlipidemia�continue statin
History of bilateral total hip replacement
DVT PPx -scds pre-op.
Code status - full code
Called daughter Yasmine Mclain, cell [phone] to update 11/20 and was updated.
Await input from as to bed availability
Anticipated Discharge: 24 - 48 hours
Subjective/Interval History
-
Date of Service: November 20, 2024
Generally looks better
Objective Data
-
Labs:
Laboratory Results
11/20/24
05:38
Hgb 8.2 L
Hct 24.9 L
PT 14.2
INR 1.07
APTT 33.6
Sodium 137
Potassium 4.3
Chloride 100
Carbon Dioxide 28
BUN 35 H
Creatinine 0.9
Glucose 132 H
Calcium 8.7
Vital Signs:
Vital Signs
Temp Pulse Resp BP Pulse Ox
97.8 F 95 16 130/102 91
11/20/24 15:30 11/20/24 15:30 11/20/24 15:30 11/20/24 15:30 11/20/24 15:30
I&O
11/19/24 11/20/24 11/21/24
06:59 06:59 06:59
Intake Total 960 / 960 580 / 580
Output Total 410 / 410 350 / 350
Balance 550 / 550 230 / 230
Review of Systems
-
History Source: Patient and Coordinated Provider
Constitutional: Denies Fever
Respiratory: Reports No Symptoms
Cardiac: Reports No Symptoms; Denies Chest Pain
Abdomen/GI: Reports No Symptoms
Musculoskeletal: Reports Joint Pain
Physical Exam
-
General: Well Developed, Well Nourished and No Apparent Distress
HEENT: Normocephalic, Atraumatic and Moist Mucous Membranes
Respiratory: Clear to Auscultation; Negative Wheezes, Rales or Rhonchi
Cardiac: Regular Rhythm and S1/S2
GI: Nontender and Nondistended
Musculoskeletal: No Clubbing, No Cyanosis and No Edema
Neuro: Awake, Alert and Oriented
[2024-11-20] MEDS: NEURONTIN 800 MG PO (21:52)
[2024-11-20] MEDS: PAMELOR 20 MG PO (21:52)
[2024-11-20] MEDS: LAMICTAL 50 MG PO (21:52)
[2024-11-21] MEDS: TYLENOL PO ×2 (01:05→05:00)
[2024-11-21 06:52] LABS: % Basophils 0.4 % (0-2); % Immature Granulocytes 0.6 % (0-0.5); % Lymphocytes 17.3 % (20.5-51.1); % Neutrophils 69.7 % (42.2-75.2); Absolute Eosinophils 0.1 10^3/uL (0-0.7); Absolute Lymphocytes 1.2 10^3/uL (1.2-3.4); Absolute Monocytes 0.8 10^3/uL (0.1-0.6); Absolute Neutrophils 4.7 10^3/uL (1.4-6.5); Hematocrit 25.1 % (37.0-47.0); Hemoglobin 8.1 g/dL (12.0-16.0); Mean Corp Hgb Conc. 32.3 g/dL (33.0-37.0); Mean Corpuscular Hgb 30.2 pg (27.0-31.0); Mean Corpuscular Volume 93.7 fL (81.0-99.0); Mean Platelet Volume 9.8 fL (7.4-10.4); Nucleated Red Blood Cells % 0 %; Platelet Count 151 10^3/uL (130-400); Red Blood Cell Count 2.68 10^6/uL (4.20-5.40); Red Cell Dist. Width 15.1 % (11.5-14.5); White Blood Cell Count 6.8 10^3/uL (4.8-10.8)
[2024-11-21 07:17] LABS: Blood Urea Nitrogen 31 mg/dl (7-17); Calcium 8.7 mg/dl (8.4-10.2); Carbon Dioxide 31 mmol/L (22-30); Chloride 100 mmol/L (98-107); Estimated Creatinine Clearance 59 ml/min; Glucose 102 mg/dl (70-99); Potassium 3.9 mmol/L (3.5-5.1); Sodium 137 mmol/L (135-145); eGFR > 60.00
--- NOTE | 2024-11-21 07:24 | W.PN.UPDATE ---
Update Note
Progress Note Update
Ms. Armas is POD2 following her left humerus ORIF performed by Dr. Pedro. She is resting comfortably in bed this morning, and reports she is doing well overall. She reports her pain is well controlled at present. She has no questions or concerns
at this time.
Directed exam of the left upper extremity reveals surgical dressing with strikethrough of dried blood. Otherwise dry and intact. Mild tenderness to palpation about the proximal humerus. Compartments soft and compressible. Patient able to wiggle
fingers, flex and extend wrist. Neurovascularly intact distally.
Hgb 8.1 this AM.
79-year-old female POD #2 Left Humerus ORIF performed on 11/20/[address] Pedro.
- NWB LUE. Sling to LUE. Encourage digital ROM.
- Ice therapy / elevation for edema control.
- ASA 81mg BID x 4 weeks for DVT prophylaxis unless otherwise recommended by primary team.
- Hgb 8.1 this AM. Continue to monitor.
- PT/OT.
- Patient is stable post-operatively from an orthopedic standpoint. Orthopedic surgery will sign off for now. Please reach out with any additional questions or concerns.
[2024-11-21 07:30] VITALS: BP 162/83
[2024-11-21] MEDS: EFFEXOR XR 225 MG PO (08:17)
[2024-11-21] MEDS: COLACE 100 MG PO ×2 (08:18→21:28)
[2024-11-21] MEDS: TYLENOL 650 MG PO ×4 (08:18→21:17)
[2024-11-21] MEDS: LIPITOR 20 MG PO (08:18)
[2024-11-21] MEDS: SINGULAIR 10 MG PO (08:18)
[2024-11-21] MEDS: ZESTRIL 2.5 MG PO (08:18)
[2024-11-21] MEDS: SENOKOT 17.2 MG PO ×2 (08:18→21:28)
[2024-11-21] MEDS: PROTONIX 40 MG PO (08:18)
[2024-11-21] MEDS: NAMENDA 10 MG PO ×2 (08:18→21:17)
[2024-11-21] MEDS: NEURONTIN 600 MG PO (08:18)
[2024-11-21] MEDS: ULTRAM 100 MG PO ×2 (08:19→21:17)
--- NOTE | 2024-11-21 09:16 | PTCARENOTE ---
Addendum entered by Bambi Zuniga RN 11/21/24 16:10:
RN into room to give prn suppository per Dr Raygoza. Pt stated ' its funny i feel fine'. RN explained risks of ongoing constipation and need to have BM prior to DC. RN asked pt, ' Are you ok with receiving the suppository'. Pt stated ' are you ok if
i whip you like a dog'? Pt then with confused conversation and referencing items and people not currently in the room. Pt reoriented and suppository provided. Care ongoing.
Addendum entered by Bambi Zuniga RN 11/21/24 14:35:
Pt repeatedly violating chair alarm, stating ' i'm waiting for the shipment'. Pt assisted back to the chair and then back to bed. Bed/ chair alarm remain engaged. Assessment ongoing.
Addendum entered by Bambi Zuniga RN 11/21/24 10:50:
1050- Pt yelled out ' Im calling 911'. PCT into room, pt agitated stated ' I was supposed to be discharged yesterday'. Pt reoriented by PCT. Dr Raygoza to bedside to assess. Care remains ongoing.
Addendum entered by Bambi Zuniga RN 11/21/24 10:32:
1030- Pt found with sling removed stating ' i need the phone number for [facility]'. Pt informed that she is at [facility] and asked ' who are you trying to get a hold of?' Pt stated ' i need to speak with my sister' Pt informed
that we do not have her sister's phone number listed and only have contact information for her daughter bari. Pt becoming agitated and refusing, repeatedly saying ' i need the phone for [facility]'. Sling reapplied and visual reminder to
not remove sling provided to pt. Care remains ongoing.
Original Note:
810- Pt found removing sling and swinging arm around in the air. When asked by RN ' why did you take off your sling' Pt responded ' Because i have to go to the bathroom'. Pt asked orientation questions, unable to answer why she is here at [facility]. Stated ' were at my sisters [place], its october', unable to provide further information regarding date. Pt reoriented and RN explained the importance of keeping the sling on. Pt assisted with toileting, unable to void at this time and
falling asleep.
900- Pt found again with sling removed. When asked why she removed it, pt stated ' because its between the chair and the bed'. Sling reapplied.
Pt noted this am to be having conversations with people not currently in the room, believes she is speaking with her sister who is not here at present. Care ongoing at this time.
[2024-11-21 10:00] VITALS: BP 153/93; PULSE 81; O2SAT 96
[2024-11-21 10:02] VITALS: BP 153/93; PULSE 81; O2SAT 96
[2024-11-21 10:48] VITALS: BMI 35.3
[2024-11-21] MEDS: MILK OF MAGNESIA 30 ML PO (11:13)
--- NOTE | 2024-11-21 13:03 | W.PN.HOSP.TC ---
Today's Communication/Plan
-
potential dc tomorrow
Assessment / Plan
Assessment / Plan
IMPRESSION:
79-year-old female has ambulatory dysfunction and ambulates with a walker and lives at assisted living at [facility] presents to the emergency department following a mechanical fall and suffered an acute displaced fracture of the left mid humeral
diaphysis. She had been placed in a splint as recommended by orthopedics. Underwent ORIF on 11/20
PLAN:
Mechanical fall leading to ACUTE DISPLACED FRACTURE of the LEFT MID HUMERAL DIAPHYSIS
- pain control w/ tylenol, gabapentin and low dose opioids prn
- continue coaptation splint per ortho
- PT/OT POST OP.
- Case management
-Patient is a 79-year-old female with no significant cardiac history. Denies any renal disease. Denies diabetes history. Denies any chest pain at rest or with exertion with activity. No prior cardiac events. Patient at baseline not on oxygen.
Blood pressure and heart rate well-controlled.
EKG preop nl
Pt denies chest pain at rest or exertion or sob or pnd or orthopnea. Pt with RCRI 0.9% class I risk of cardiovascular risk factor for Left ORIF.
- continue lisinopril 2.5
Acute kidney injury (non-traumatic)
better
Asthma - Mild intermittent, no current exacerbation
- prn nebs
- continue montelukast
Variable mentation
ARACELY Lacy reported pt was confused earlier, when seen by me she was very alert. Bambi brought back to room and related that she definitely was better, mentation remains variable
Essential HTN
BP very variable 104/54-130/102
Post op anemia/blood loss anemia
Hgb 11.5-->9.7-->8.2-->8.1
Dementia - Mild. Patient a&o x 3 here and appropriate
- continue memantine
- continue venlafaxine
as per nursing no hallucinations noted past 24 hrs, though did appear more confused overall (?related to anesthesia)
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
Moderate osteoarthritis of the left acromioclavicular joint.
-Pain control. PT/OT post op
Chronic opioid dependent on daily basis
-Continue with tramadol 100 mg twice daily (will need script upon return to facility)
Hyperlipidemia�continue statin
History of bilateral total hip replacement
DVT PPx -scds pre-op.
Code status - full code
Called daughter Yasmine Mclain, cell [phone] to update 11/21 and was updated.
As per JUAN Betts should have availability tomorrow
Anticipated Discharge: Within 24 hours
Subjective/Interval History
-
Date of Service: November 21, 2024
Nursing reposrt more confused earlier today, but was better when seen by me
Objective Data
-
Labs:
Laboratory Results
11/21/24
05:41
WBC 6.8
Hgb 8.1 L
Hct 25.1 L
Plt Count 151
Sodium 137
Potassium 3.9
Chloride 100
Carbon Dioxide 31 H
BUN 31 H
Creatinine 0.8
Glucose 102 H
Calcium 8.7
Vital Signs:
Vital Signs
Temp Pulse Resp BP Pulse Ox
98.1 F 81 16 162/83 95
11/21/24 07:30 11/21/24 07:30 11/21/24 07:30 11/21/24 07:30 11/21/24 07:30
I&O
11/20/24 11/21/24 11/22/24
06:59 06:59 06:59
Intake Total 580 / 580 480 / 480
Output Total 350 / 350 300 / 300
Balance 230 / 230 180 / 180
Review of Systems
-
History Source: Patient and Coordinated Provider
Constitutional: Denies Fever
Respiratory: Reports No Symptoms
Cardiac: Reports No Symptoms; Denies Chest Pain
Abdomen/GI: Reports No Symptoms
Musculoskeletal: Reports Joint Pain
Physical Exam
-
General: Well Developed, Well Nourished and No Apparent Distress
HEENT: Normocephalic, Atraumatic and Moist Mucous Membranes
Respiratory: Clear to Auscultation; Negative Wheezes, Rales or Rhonchi
Cardiac: Regular Rhythm and S1/S2
GI: Nontender and Nondistended
Musculoskeletal: No Clubbing, No Cyanosis and No Edema
Neuro: Awake, Alert and Oriented
--- NOTE | 2024-11-21 14:23 | CM ---
Addendum entered by Loree Dinh 11/21/24 14:27:
Updated pts daughter of plan for transfer to the [facility] tomorrow
Original Note:
Per Dr Raygoza pt will be ready for discharge tomorrow
Spoke with Trinity at the [facility] - can accept tomorrow
Will need covid prior to discharge
Plan - transfer to the [facility] tomorrow
R - [phone]
F - [phone]
[2024-11-21 15:35] VITALS: BP 146/79
[2024-11-21] MEDS: DULCOLAX 10 MG RECTAL (16:07)
[2024-11-21 16:43] LABS: COVID-19 Antigen Negative (Negative)
[2024-11-21] MEDS: NEURONTIN 800 MG PO (21:17)
[2024-11-21] MEDS: SENOKOT PO (21:17)
[2024-11-21] MEDS: COLACE PO (21:17)
[2024-11-21] MEDS: PAMELOR 20 MG PO (21:17)
[2024-11-21] MEDS: LAMICTAL 50 MG PO (21:18)
[2024-11-21 23:10] VITALS: BP 146/87
[2024-11-22] MEDS: TYLENOL PO ×2 (00:28→05:22)
[2024-11-22 08:25] VITALS: BP 155/91
[2024-11-22] MEDS: TYLENOL 650 MG PO ×2 (09:04→11:45)
[2024-11-22] MEDS: SINGULAIR 10 MG PO (09:04)
[2024-11-22] MEDS: ZESTRIL 2.5 MG PO (09:04)
[2024-11-22] MEDS: EFFEXOR XR 225 MG PO (09:04)
[2024-11-22] MEDS: NEURONTIN 600 MG PO (09:04)
[2024-11-22] MEDS: ULTRAM 100 MG PO (09:05)
[2024-11-22] MEDS: LIPITOR 20 MG PO (09:05)
[2024-11-22] MEDS: PROTONIX 40 MG PO (09:05)
[2024-11-22] MEDS: NAMENDA 10 MG PO (09:05)
[2024-11-22] MEDS: COLACE 100 MG PO (09:05)
[2024-11-22] MEDS: SENOKOT 17.2 MG PO (09:05)
--- NOTE | 2024-11-22 09:46 | PN.CDI ---
CDI
- -
CDI:
Physician Documentation Request
Admit Date: 11/18/24 13:46
Dear Doctor Idalmis,
Please review the following and provide your response in the progress notes.
Clinical Indicators:
Pt admitted for mechanical fall leading to acute displaced fracture of the left mid humeral diaphysis.
ER: 'Patient reports that she was walking at [place] when she tripped over the carpet and fell onto her left side.'
11/17 shoulder and humerus Xray Impression: 2. Diffuse bone demineralization.
Please provide further specificity regarding the diagnosis of fracture:
Due to combination of traumatic and pathological process (osteoporosis), but trauma alone would not likely have been sufficient to cause fracture.
Pathologic due to osteoporosis
Traumatic
Other
Use of terms such as suspected, likely, concern for, or probable (associated with a specific diagnosis that is being evaluated, monitored, or treated as if it exists) are acceptable and can be coded in the inpatient setting, when documented at the
time of discharge.
Thank you,
Liliana Garcia RN, BSN
CDI Specialist
Available via [place] Text
Please use your independent medical judgment in providing your response.
--- NOTE | 2024-11-22 09:56 | PN.CDI ---
CDI
- -
CDI:
Physician Documentation Request
Admit Date: 11/18/24 13:46
Dear Doctor Idalmis,
Please review the following and provide your response in the progress notes.
Clinical Indicators:
Pt admitted for mechanical fall leading to displaced fracture of the left mid humeral diaphysis.
11/21 Progress note: 'Post op anemia/blood loss anemia- Hgb 11.5-->9.7-->8.2-->8.1'
Clarify which of the following accurately represents the acuity of the Anemia. Possible options might include:
Acute blood loss anemia
Acute on chronic blood loss anemia
Other
Use of terms such as suspected, likely, concern for, or probable (associated with a specific diagnosis that is being evaluated, monitored, or treated as if it exists) are acceptable and can be coded in the inpatient setting, when documented at the
time of discharge.
Thank you,
Liliana Garcia RN, BSN
CDI Specialist
Available via [place] Text
Please use your independent medical judgment in providing your response.
--- NOTE | 2024-11-22 09:58 | CM ---
Addendum entered by Loree Dinh 11/22/24 10:30:
Daughter updated of discharge/transfer plan
Discussed IMM
Plan - transfer to the [facility]
r - [phone]
f - [phone]
Original Note:
Medically ready for discharge
Spoke with Trinity at the [facility] - can accept today
Transport at 1:30PM
Plan - transfer to the [facility]
R - [phone]
V - [phone]
--- NOTE | 2024-11-22 10:09 | PN.CDI ---
CDI
- -
CDI:
Physician Documentation Request
Admit Date: 11/18/24 13:46
Dear Doctor Idalmis,
Please review the following and provide your response in the progress notes.
Clinical Indicators:
Pt admitted for mechanical fall leading to displaced fracture of the left mid humeral diaphysis.
11/21 RN Note: '1030- Pt found with sling removed stating ' i need the phone number for [facility]'. Pt informed that she is at [facility] and asked ' who are you trying to get a hold of?' Pt stated ' i need to speak with my sister'
Pt informed that we do not have her sister's phone number listed and only have contact information for her daughter bari. Pt becoming agitated and refusing, repeatedly saying ' i need the phone for [facility]'. Sling reapplied and visual
reminder to not remove sling provided to pt. Care remains ongoing.'
1050- Pt yelled out ' Im calling 911'. PCT into room, pt agitated stated ' I was supposed to be discharged yesterday'. Pt reoriented by PCT. Dr Raygoza to bedside to assess. Care remains ongoing.
If possible, please further clarify type of Dementia and any associated manifestations:
Dementia with behavioral disturbances- agitation
Dementia without behavioral disturbance
Other
Use of terms such as suspected, likely, concern for, or probable (associated with a specific diagnosis that is being evaluated, monitored, or treated as if it exists) are acceptable and can be coded in the inpatient setting, when documented at the
time of discharge.
Thank you,
Liliana Garcia RN, BSN
CDI Specialist
Available via [employer]
Please use your independent medical judgment in providing your response.
--- NOTE | 2024-11-22 10:31 | W.PN.HOSP.TC ---
Today's Communication/Plan
-
dc today
Assessment / Plan
Assessment / Plan
IMPRESSION:
79-year-old female has ambulatory dysfunction and ambulates with a walker and lives at assisted living at [facility] presents to the emergency department following a mechanical fall and suffered an acute displaced fracture of the left mid humeral
diaphysis. She had been placed in a splint as recommended by orthopedics. Underwent ORIF on 11/20, cleared by ortho for dc as of 11/21. Bed available at [facility] today
PLAN:
Mechanical fall leading to ACUTE DISPLACED FRACTURE of the LEFT MID HUMERAL DIAPHYSIS
Due to combination of traumatic and pathological process (osteoporosis), but trauma alone would not likely have been sufficient to cause fracture.
- pain control w/ tylenol, gabapentin and low dose opioids prn
- continue coaptation splint per ortho
- PT/OT POST OP.
- Case management
-Patient is a 79-year-old female with no significant cardiac history. Denies any renal disease. Denies diabetes history. Denies any chest pain at rest or with exertion with activity. No prior cardiac events. Patient at baseline not on oxygen.
Blood pressure and heart rate well-controlled.
EKG preop nl
Pt denies chest pain at rest or exertion or sob or pnd or orthopnea. Pt with RCRI 0.9% class I risk of cardiovascular risk factor for Left ORIF.
- continue lisinopril 2.5
Acute kidney injury (non-traumatic)
better
Asthma - Mild intermittent, no current exacerbation
- prn nebs
- continue montelukast
Dementia with behavioral disturbances- agitation intermittent
Variable mentation
Mentation is better today, probably approaching baseline
Essential HTN
BP very variable 104/54-130/102
Post op anemia/acute blood loss anemia, now stable
Hgb 11.5-->9.7-->8.2-->8.1
Hx of GI bleed
will resume prior to admission omeprazole. ECASA does increase the risk of GI bleed, but risk should be minimal with the Omeprazole. This aspect discussed with dgt by phone
Dementia - Mild. Patient a&o x 3 here and appropriate
- continue memantine
- continue venlafaxine
as per nursing no hallucinations noted past 24 hrs, though did appear more confused overall (?related to anesthesia)
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
Moderate osteoarthritis of the left acromioclavicular joint.
-Pain control. PT/OT post op
Chronic opioid dependent on daily basis
-Continue with tramadol 100 mg twice daily (will need script upon return to facility)
Hyperlipidemia�continue statin
History of bilateral total hip replacement
DVT PPx -scds pre-op.
Code status - full code
Called daughter Yasmine Mclain, cell [phone] to update 11/22 and was updated.
As per Evelia Betts has bed available
dc today
More than 30 minutes spent in discharge including
Final examination of the patient
Summarizing hospital stay
Instructions for continuing care to all relevant caregivers
Preparation of discharge records, prescriptions, and referral forms
Total time spent (in minutes): 45
Anticipated Discharge: Today
Subjective/Interval History
-
Date of Service: November 22, 2024
Awake, alert, in good spirits
Objective Data
-
Vital Signs:
Vital Signs
Temp Pulse Resp BP Pulse Ox
98.4 F 96 18 155/91 95
11/22/24 08:25 11/22/24 08:25 11/22/24 08:25 11/22/24 08:25 11/22/24 08:25
I&O
11/21/24 11/22/24 11/23/24
06:59 06:59 06:59
Intake Total 480 / 480 360 / 360
Output Total 300 / 300
Balance 180 / 180 360 / 360
Review of Systems
-
History Source: Patient, Family (reviewed with dgt) and Coordinated Provider
Constitutional: Denies Fever
Respiratory: Reports No Symptoms
Cardiac: Reports No Symptoms; Denies Chest Pain
Abdomen/GI: Reports No Symptoms
Musculoskeletal: Reports Joint Pain
Physical Exam
-
General: Well Developed, Well Nourished and No Apparent Distress
HEENT: Normocephalic, Atraumatic and Moist Mucous Membranes
Respiratory: Clear to Auscultation; Negative Wheezes, Rales or Rhonchi
Cardiac: Regular Rhythm and S1/S2
GI: Nontender and Nondistended
Musculoskeletal: No Clubbing, No Cyanosis and No Edema
Neuro: Awake, Alert and Oriented
--- NOTE | 2024-11-22 11:23 | PTCARENOTE ---
Attempted to call report to Evelia Betts RN unable to take report at this time. This RN awaiting call back.
[2024-11-22 11:50] VITALS: BP 147/77
--- NOTE | 2024-11-22 13:09 | W.DS.TRANS ---
DC Summary - Custodial Maintenance Worker
-
Discharge Instructions:
Discharge Diagnosis/Procedures Left Humerus ORIF
Diet Regular
Activity With assistance
Driving Restrictions No driving
Bathing Restrictions None
Blood Work CBC, BMP in5 days
Instructions:
Stand-Alone Forms:
Changes to Home Medications: Yes
Discharge Medications:
DC Medications w/original date entered in [employer]
acetaminophen 500 mg tablet 1,000 mg PO BID mild pain/fever 11/17/24
atorvastatin 20 mg tablet 20 mg PO DAILY High Cholesterol 11/17/24
bisacodyl 5 mg tablet (Woman's Laxative (bisacodyl)) 5 mg PO DAILY Constipation 11/17/24
gabapentin 600 mg tablet 600 mg PO DAILY neuropathic pain 11/17/24
gabapentin 800 mg tablet 800 mg PO HS neuropathic pain 11/17/24
lamotrigine 25 mg tablet 50 mg PO HS Seizures 11/17/24
lisinopril 2.5 mg tablet 2.5 mg PO DAILY Blood Pressure 11/17/24
memantine 10 mg tablet 10 mg PO BID Mental Health/Anxiety 11/17/24
montelukast 10 mg tablet 10 mg PO DAILY Lung/Breathing Issues 11/17/24
nortriptyline 10 mg capsule 20 mg PO HS Mental Health/Anxiety 11/17/24
omeprazole 20 mg capsule,delayed release 20 mg PO DAILY Gastrointestinal Issue 11/17/24
therapeutic multivitamin 1 tab PO DAILY Supplement 11/17/24
venlafaxine 75 mg capsule,extended release 24 hr 225 mg PO DAILY Mental Health/Anxiety 11/17/24
acetaminophen 325 mg tablet 650 mg (2 x 325 mg) PO Q4HWA #0 tabs 11/22/24
aspirin 81 mg tablet,delayed release (Adult Low Dose Aspirin) 81 mg PO BID #60 tabs 11/22/24
docusate sodium 100 mg capsule 100 mg PO BID #0 caps 11/22/24
sennosides 8.6 mg tablet (Senna Laxative) 17.2 mg (2 x 8.6 mg) PO BID #0 tabs 11/22/24
tramadol 50 mg tablet 100 mg (2 x 50 mg) PO BID #12 tabs 11/22/24
Home Medication Changes
Aspirin 81 mg bid for 4 weeks
Pending Results: No
--- NOTE | 2024-11-22 13:31 | W.DS.TRANS ---
DC Summary - Structural Analyst
-
Discharge Instructions:
Discharge Diagnosis/Procedures Left Humerus ORIF
Diet Regular
Activity With assistance
Driving Restrictions No driving
Bathing Restrictions None
Blood Work CBC, BMP in5 days
Instructions:
Stand-Alone Forms:
Changes to Home Medications: Yes
Discharge Medications:
DC Medications w/original date entered in [employer]
acetaminophen 500 mg tablet 1,000 mg PO BID mild pain/fever 11/17/24
atorvastatin 20 mg tablet 20 mg PO DAILY High Cholesterol 11/17/24
bisacodyl 5 mg tablet (Woman's Laxative (bisacodyl)) 5 mg PO DAILY Constipation 11/17/24
gabapentin 600 mg tablet 600 mg PO DAILY neuropathic pain 11/17/24
gabapentin 800 mg tablet 800 mg PO HS neuropathic pain 11/17/24
lamotrigine 25 mg tablet 50 mg PO HS Seizures 11/17/24
lisinopril 2.5 mg tablet 2.5 mg PO DAILY Blood Pressure 11/17/24
memantine 10 mg tablet 10 mg PO BID Mental Health/Anxiety 11/17/24
montelukast 10 mg tablet 10 mg PO DAILY Lung/Breathing Issues 11/17/24
nortriptyline 10 mg capsule 20 mg PO HS Mental Health/Anxiety 11/17/24
omeprazole 20 mg capsule,delayed release 20 mg PO DAILY Gastrointestinal Issue 11/17/24
therapeutic multivitamin 1 tab PO DAILY Supplement 11/17/24
venlafaxine 75 mg capsule,extended release 24 hr 225 mg PO DAILY Mental Health/Anxiety 11/17/24
acetaminophen 325 mg tablet 650 mg (2 x 325 mg) PO Q4HWA #0 tabs 11/22/24
aspirin 81 mg tablet,delayed release (Adult Low Dose Aspirin) 81 mg PO BID #60 tabs 11/22/24
docusate sodium 100 mg capsule 100 mg PO BID #0 caps 11/22/24
sennosides 8.6 mg tablet (Senna Laxative) 17.2 mg (2 x 8.6 mg) PO BID #0 tabs 11/22/24
tramadol 50 mg tablet 100 mg (2 x 50 mg) PO BID #12 tabs 11/22/24
Home Medication Changes
Aspirin 81 mg bid for 4 weeks
Pending Results: No
== END 2024-11-22 14:36 | DRG 493 ==
LOC: 2 SOUTH 13:46
PROVIDERS: Hospitalist; Orthopaedic Surgery Hand Surgery; ADMITTING PHYSICIAN Internal Medicine; ATTENDING PHYSICIAN Internal Medicine; EMERGENCY PHYSICIAN Emergency Medicine; FAMILY PHYSICIAN Orthopaedic Surgery; OTHER PHYSICIAN Student in an Organized Health Care Education/Training Program
PROC: 0PSG04Z Reposition Left Humeral Shaft with Internal Fixation Device, Open Approach (ICD-10-PCS; 2024-11-19)
DX: M80.022A Age-related osteoporosis with current pathological fracture, left humerus, initial encounter for fracture (principal); D62 Acute posthemorrhagic anemia; S42.492A Other displaced fracture of lower end of left humerus, initial encounter for closed fracture; F11.20 Opioid dependence, uncomplicated; N17.9 Acute kidney failure, unspecified; F03.A11 Unspecified dementia, mild, with agitation; I10 Essential (primary) hypertension; J45.909 Unspecified asthma, uncomplicated; E78.00 Pure hypercholesterolemia, unspecified; W01.0XXA Fall on same level from slipping, tripping and stumbling without subsequent striking against object, initial encounter; E66.9 Obesity, unspecified; Z11.52 Encounter for screening for COVID-19; Z68.35 Body mass index [BMI] 35.0-35.9, adult; K21.9 Gastro-esophageal reflux disease without esophagitis; Z96.643 Presence of artificial hip joint, bilateral; M19.012 Primary osteoarthritis, left shoulder; Z98.1 Arthrodesis status; Z88.5 Allergy status to narcotic agent; Z79.899 Other long term (current) drug therapy
CPT/HCPCS: 70450; 72125; 73030; 73060; 76000; 80048; 80053; 85014; 85018; 85025; 85610; 85730; 86850; 86900; 86901; 87811; 93005; 96374; 96376; 97116; 97163; 97166; 97535; 99285